=== PATIENT | female | born 1970 | race African-American/Black ===

== ENCOUNTER 2022-01-03 08:52 | Outpatient (CLI) | payer OTHER, SELFPAY ==
--- NOTE | 2022-01-23 19:22 | WPDSLEEPSTUD ---
Sleep Study Date of Study: 01/03/22 Ordering Provider: Kim Rashid, [facility]- Interpreting Physician: Emily Gaspar, DO Sleep Study Type: Polysomnogram Height: 1.68 m Weight: 111.584 kg Body Mass Index: 39.6 Neck Circumference (inches): 18 [place]: 10 Reason for Sleep Study Snoring, multiple nighttime awakenings Sleep History The patient is a 51-year-old female with hypertension, hyperlipidemia, depression and GERD that had a sleep study ordered by her primary care for evaluation of sleep apnea. The patient occasionally awakens from sleep short of breath. She denies awakening at night with heartburn, belching or cough. She constantly snores and is occasionally loud enough that others complain. He denies having trouble sleeping when she has a cold. She occasionally wakes up gasping for air throughout the night. She rarely has breathing problems at night observed by herself or others. She occasionally sweats excessively at night. She occasionally has heart palpitations or irregular heartbeats during. She occasionally falls asleep during the day but never while driving. She frequently experiences loss of muscle tone when extremely emotional. She denies sleep paralysis. She denies having trouble at school or work due to sleepiness. She constantly experiences vivid dreamlike scenes upon awakening or falling asleep. She rarely feels afraid of going to sleep. She rarely has nightmares. She constantly remembers her dreams. She constantly has thoughts racing through her mind. She frequently feels sad or depressed. She constantly has anxiety. She constantly has muscular tension. She constantly notices parts of her body jerk. She constantly kicks during the night. He denies having crawling and aching feelings in her legs as well as leg pain during the night. He denies grinding her teeth during sleep awakening with morning jaw pain. She is constantly bothered by pain during the day but rarely awakened by pain during the night. She constantly wakes up feeling stiff in the morning. She constantly wakes up with sore achy muscles. She constantly wakes up with pain in the neck, spine and other joints. He goes to bed around 9:00 p.m. on both weekdays and weekends. It takes her 40 minutes to fall asleep. She wakes up 4 times throughout the night for unknown reasons. He is able to fall back asleep immediately. She wakes up at 6:00 a.m. on both weekdays and weekends. He typically gets 6-7 hours of sleep per night. He will stay in bed for few minutes after waking up in the morning. She currently lives alone. She does not consume any caffeinated beverages within 2 hours of bedtime. She does not engage in physical exercise before bedtime. She will watch television before falling asleep. She will take naps in the afternoon but they are not always refreshing. He denies consuming any caffeinated products during the day. She denies tobacco, alcohol and recreational drug use. [facility] Past Medical History Medical History Depression Hyperlipidemia Hypertension Social History Social History (Updated 01/23/22 @ 20:41 by Emily Gaspar DO) Smoking status: Never smoker Alcohol intake: current Alcohol use details: occasional Substance use: never Living arrangements: alone Gender identity (if verbalized by the patient): Female Sleep Procedure This test was performed using the [employer] multiple channel system including EOG, EEG, submental EMG, EKG, nasal and oral airflow using thermistors and nasal pressure sensors, chest and abdominal belts for body position data, and pulse oximetry. Video monitoring was also performed. The study was scored using [facility] guidelines. Sleep Architecture The patient had a total recording time of 464.2 minutes and total sleep time of 363.5 minutes. The sleep efficiency was 78.3%. Sleep latency was 12.5 minutes and REM late
[2022-01-23 20:44] VITALS: BMI 39.6
--- NOTE | 2023-05-10 10:22 | SLEEP ---
pt stopped usage of pap
== END 2022-01-04 06:12 | disposition home or self-care (01) ==
LOC: ANHCSM 08:53
PROVIDERS: Visit Provider Nurse Practitioner
DX: G47.30 Sleep apnea, unspecified (principal); G47.33 Obstructive sleep apnea (adult) (pediatric)
CPT/HCPCS: 95810